=== PATIENT | male | born 1975 | race Caucasian/White ===

== ENCOUNTER 2024-09-04 12:54 | Emergency (ER) | payer OTHER ==
[~2024-09-04] VITALS: Ht 177.8 cm; Wt 82.0 kg
[2024-09-04 12:58] VITALS: O2SAT 98
[2024-09-04 14:38] VITALS: BP 104/69; PULSE 73; RESP 16; TEMP 34.7; O2SAT 99
== END 2024-09-04 14:42 | disposition home or self-care (01) ==
LOC: ER 12:54
DX: R53.83 Other fatigue (principal)
CPT/HCPCS: 99283